=== PATIENT | female | born 1975 | race Hispanic/Latino ===

== ENCOUNTER 2020-12-07 17:05 | Emergency (ER) | payer OTHER ==
[~2020-12-07] VITALS: Ht 160 cm; Wt 63.5 kg
[2020-12-07 18:37] LABS: BASOPHILS % (AUTO) 0.3 % (0.0-5.0); HEMATOCRIT 33.6 % (36-48); MEAN CORPUSCULAR HEMOGLOBIN 19.3 pg (27.0-33.0); MEAN CORPUSCULAR HGB CONC 30.4 g/dL (32.0-36.0); MEAN CORPUSCULAR VOLUME 63.5 fL (79-99); MONOCYTES % (AUTO) 9.8 % (3.0-13.0); NEUTROPHILS % (AUTO) 57.6 % (40.0-77.0); PLATELET COUNT (AUTO) 138 K/uL (130-400); RED BLOOD CELL COUNT(AUTO) 5.29 MIL/uL (4.00-5.50); RED CELL DISTRIBUTION WIDTH 19.5 % (11.0-15.5); WHITE BLOOD COUNT (AUTO) 3.7 K/uL (4.8-10.8)
[2020-12-07 18:42] VITALS: BP 132/78
[2020-12-07 18:54] LABS: CREATININE 0.6 mg/dL (0.5-1.5); POTASSIUM 3.3 mmol/L (3.5-5.1)
[2020-12-07 18:59] LABS: ALBUMIN 3.6 g/dL (3.5-5.0); BILIRUBIN,TOTAL 0.2 mg/dL (0.2-1.0)
[2020-12-07] MEDS ORDERED: AZITHROMYCIN 250 MG TABLET PO SCH (19:15)
[2020-12-07] MEDS ORDERED: CEFTRIAXONE SODIUM 1 GM IVP SCH (19:15)
[2020-12-07] MEDS ORDERED: CEFTRIAXONE SODIUM 1 GM IM SCH (19:30)
[2020-12-07] MEDS ORDERED: ACETAMINOPHEN-CODEINE 300/30MG TAB PO ONE (19:30)
[2020-12-07] MEDS ORDERED: ALBU8.5H8 IH (19:36)
[2020-12-07] MEDS ORDERED: CODE10LI PO (19:36)
[2020-12-07] MEDS ORDERED: AMOX-429 PO (19:36)
== END 2020-12-07 19:59 | disposition home or self-care (01) ==
LOC: EDH 17:05
DX: U07.1 COVID-19 (principal); J12.82 Pneumonia due to coronavirus disease 2019
CPT/HCPCS: 36415; 71045; 80053; 81025; 85025; 87426; 99284; J0696